=== PATIENT | female | born 1985 | race Caucasian/White ===

== ENCOUNTER 2020-06-21 07:40 | Outpatient (CLI) | payer BC ==
--- NOTE | 2020-06-21 13:50 | NM ---
RADIONUCLIDE GASTRIC EMPTYING SCAN: HISTORY: Nausea RADIOPHARMACEUTICAL: 2 mCi technetium 99m sulfur colloid administered orally in scrambled eggs. FINDINGS: Gastric emptying at different times is as follows: 1 hour: 64% 2 hours: 90% 3 hours: 94% 4 hours: 93% IMPRESSION: Normal gastric emptying
== END 2020-06-21 07:41 | disposition home or self-care (01) ==
LOC: NM 07:40
PROVIDERS: ATTEND Physician Assistant Medical
DX: R10.9 Unspecified abdominal pain (principal); R19.7 Diarrhea, unspecified; R11.0 Nausea; R63.4 Abnormal weight loss
CPT/HCPCS: 78264; A9541